=== PATIENT | female | born 1965 | race Two or more races ===

== ENCOUNTER 2020-09-11 17:25 | Emergency (ER) | payer MEDICAID ==
[~2020-09-11] VITALS: Ht 165.1 cm; Wt 61.0 kg
[2020-09-11 17:30] VITALS: BP 18/76
== END 2020-09-11 18:57 | disposition home or self-care (01) ==
LOC: ER 17:25
DX: M79.662 Pain in left lower leg (principal); M79.661 Pain in right lower leg; E11.9 Type 2 diabetes mellitus without complications; I10 Essential (primary) hypertension; K76.9 Liver disease, unspecified; Z86.73 Personal history of transient ischemic attack (TIA), and cerebral infarction without residual deficits
CPT/HCPCS: 99283

== ENCOUNTER 2020-09-11 23:52 | Emergency (ER) | payer MEDICAID ==
[~2020-09-11] VITALS: Ht 160 cm; Wt 59.0 kg
[2020-09-12] MEDS ORDERED: SODIUM CHLORIDE 0.9% 1,000 ML IV ONE (00:45)
[2020-09-12 01:16] LABS: BASOPHILS % 1.3 % (0.0-2.0); EOSINOPHILS % 2.2 % (0.0-5.0); HEMATOCRIT. 39.8 % (36.0-48.0); HEMOGLOBIN. 13.2 g/dL (12.0-16.0); LYMPHOCYTES % 45.7 % (20.0-50.0); MEAN CORPUSCULAR HEMOGLOBIN 32.4 pg (28.0-32.0); MEAN CORPUSCULAR VOLUME 97.4 fL (81.0-99.0); MONOCYTES % 10.7 % (2.0-8.0); NEUTROPHILS % 40.1 % (40.0-76.0); PLATELET 148 x1000/uL (130-400); RED BLOOD CELL COUNT 4.08 mill/uL (4.2-5.4); RED CELL DISTRIBUTION WIDTH 14.2 % (11.6-14.6)
[2020-09-12 01:19] LABS: CHLORIDE 108 mEq/L (98-107)
[2020-09-12 01:22] LABS: ETHANOL BLOOD 25 mg/dL
[2020-09-12 02:41] LABS: CLARITY URINE CLEAR (CLEAR); COLOR URINE DARK YELLOW (YELLOW); KETONES URINE TRACE (NEGATIVE); LEUKOCYTE ESTERASE URINE TRACE (NEGATIVE); NITRITE URINE NEGATIVE (NEGATIVE); OCCULT BLOOD URINE NEGATIVE (NEGATIVE); PROTEIN URINE 1+ (NEGATIVE); SPECIFIC GRAVITY URINE 1.031 (1.005-1.030)
[2020-09-12 02:52] LABS: *AMPHETAMINES SCREEN URINE PRESUMTIVE POSITIVE (NEGATIVE); *BARBITURATES SCREEN URINE NEGATIVE (NEGATIVE); *BENZODIAZEPINES SCREEN URINE NEGATIVE (NEGATIVE); *COCAINE SCREEN URINE NEGATIVE (NEGATIVE); CANNABINOID URINE SCREEN NEGATIVE (NEGATIVE); OPIATES URINE SCREEN NEGATIVE (NEGATIVE); PHENCYCLIDINE URINE SCREEN PRESUMTIVE POSITIVE (NEGATIVE)
[2020-09-12 02:56] LABS: METHADONE URINE SCREEN PRESUMTIVE POSITIVE (NEGATIVE)
[2020-09-12 05:07] VITALS: BP 109/55
== END 2020-09-12 05:21 | disposition home or self-care (01) ==
LOC: ER 23:52
DX: F10.129 Alcohol abuse with intoxication, unspecified (principal); S00.211A Abrasion of right eyelid and periocular area, initial encounter; E11.9 Type 2 diabetes mellitus without complications; I10 Essential (primary) hypertension; Y90.1 Blood alcohol level of 20-39 mg/100 ml; K76.9 Liver disease, unspecified; Z86.73 Personal history of transient ischemic attack (TIA), and cerebral infarction without residual deficits; W01.0XXA Fall on same level from slipping, tripping and stumbling without subsequent striking against object, initial encounter; Y93.89 Activity, other specified; Y92.481 Parking lot as the place of occurrence of the external cause; Y99.8 Other external cause status
CPT/HCPCS: 36415; 70450; 71045; 80053; 80305; 80320; 81003; 82140; 83605; 84443; 84484; 85025; 93005; 96360; 99285; J7030; G0480

== ENCOUNTER 2021-07-13 12:42 | Emergency (ER) | payer MEDICAID, OTHER ==
[~2021-07-13] VITALS: Ht 162.6 cm; Wt 55.0 kg
[2021-07-13 12:45] VITALS: BP 169/85
== END 2021-07-13 16:38 | disposition left against medical advice (07) ==
LOC: ER 12:42
DX: R04.0 Epistaxis (principal)
CPT/HCPCS: 99281

== ENCOUNTER 2022-07-23 08:23 | Inpatient (IN) | payer MEDICAID, OTHER ==
[~2022-07-23] VITALS: Ht 165.1 cm; Wt 72.6 kg
[2022-07-23 09:54] LABS: BASOPHILS % 0.4 % (0.0-2.0); EOSINOPHILS % 0.2 % (0.0-5.0); HEMATOCRIT. 33.6 % (36.0-48.0); HEMOGLOBIN. 11.3 g/dL (12.0-16.0); LYMPHOCYTES % 19.8 % (20.0-50.0); MEAN CORPUSCULAR HEMOGLOBIN 32.5 pg (28.0-32.0); MEAN CORPUSCULAR VOLUME 96.6 fL (81.0-99.0); MEAN PLATELET VOLUME 9.1 fl (7.4-10.4); MONOCYTES % 12.8 % (2.0-8.0); NEUTROPHILS % 66.8 % (40.0-76.0); PLATELET 189 x1000/uL (130-400); RED BLOOD CELL COUNT 3.48 mill/uL (4.2-5.4); RED CELL DISTRIBUTION WIDTH 14.4 % (11.6-14.6)
[2022-07-23 09:59] LABS: INR 1.1; PROTHROMBIN TIME 11.9 sec (9.6-11.0)
[2022-07-23 10:01] LABS: CHLORIDE 106 mEq/L (98-107)
[2022-07-23 10:08] LABS: ETHANOL BLOOD 26 mg/dL
[2022-07-23] MEDS ORDERED: VANCOMYCIN 1G PREMIX 200 ML IV ONE (10:45)
[2022-07-23] MEDS ORDERED: CEFTRIAXONE 2GM/50ML (ADDEASE) 50 ML IV ONE (10:45)
[2022-07-23] MEDS ORDERED: KETOROLAC 30MG/ML VIAL IV ONE (11:00)
[2022-07-23] MEDS ORDERED: CEFTRIAXONE 2 G in DEXTROSE 5% WATER 50 ML IV NR (11:15)
[2022-07-23 11:59] LABS: INR 1.1
[2022-07-23 12:12] LABS: CHLORIDE 107 mEq/L (98-107)
[2022-07-23 12:23] LABS: CLARITY URINE CLEAR (CLEAR); COLOR URINE YELLOW (YELLOW); KETONES URINE NEGATIVE (NEGATIVE); LEUKOCYTE ESTERASE URINE NEGATIVE (NEGATIVE); NITRITE URINE NEGATIVE (NEGATIVE); OCCULT BLOOD URINE 1+ (NEGATIVE); PH URINE 5.5 (4.5-8.0); PROTEIN URINE 1+ (NEGATIVE); SPECIFIC GRAVITY URINE 1.029 (1.005-1.030)
[2022-07-23] MEDS ORDERED: OXYCODONE HCL/ACETAMINOPHEN 5/325MG TABLET PO ONE (12:30)
[2022-07-23] MEDS ORDERED: LIDOCAINE HCL 1% 10 MG/ML 10ML VIAL ONE (14:22)
[2022-07-23] MEDS ORDERED: PIPERACILLIN/TAZ 3.375G PREMIX 50 ML IV NR (15:00)
[2022-07-23] MEDS ORDERED: CLONIDINE 0.1MG TABLET PO PRN (15:00)
[2022-07-23] MEDS ORDERED: ONDANSETRON HCL 4MG/2ML INJ IV PRN (15:00)
[2022-07-23] MEDS ORDERED: IPRATROPIUM/ALBUTEROL 0.5-3(2.5)MG/3ML NEB HHN PRN (15:00)
[2022-07-23] MEDS ORDERED: DIPHENHYDRAMINE 50MG/ML VIAL IV PRN (15:00)
[2022-07-23] MEDS ORDERED: ACETAMINOPHEN 325MG TABLET PO PRN (15:00)
[2022-07-23] MEDS ORDERED: NALOXONE HCL 0.4MG/ML VIAL IV PRN (15:15)
[2022-07-23] MEDS: SODIUM CHLORIDE 0.9% 1,000 ML IV SCH (16:00)
[2022-07-23] MEDS: MORPHINE SULFATE 4 MG/ML CPJ (NOT FOR IM USE) IV PRN ×2 (16:05→22:03)
[2022-07-23 17:31] LABS: GLUCOSE CSF 73 mg/dL (41-75)
[2022-07-23 17:32] LABS: *AMPHETAMINES SCREEN URINE PRESUMTIVE POSITIVE (NEGATIVE); *BARBITURATES SCREEN URINE NEGATIVE (NEGATIVE); *BENZODIAZEPINES SCREEN URINE PRESUMTIVE POSITIVE (NEGATIVE); *COCAINE SCREEN URINE NEGATIVE (NEGATIVE); CANNABINOID URINE SCREEN NEGATIVE (NEGATIVE); OPIATES URINE SCREEN NEGATIVE (NEGATIVE); PHENCYCLIDINE URINE SCREEN NEGATIVE (NEGATIVE)
[2022-07-23 17:36] LABS: METHADONE URINE SCREEN PRESUMTIVE POSITIVE (NEGATIVE)
[2022-07-23] MEDS ORDERED: IPRATROPIUM BROMIDE (0.02%) 0.5MG/2.5ML NEB HHN PRN (19:00)
[2022-07-23] MEDS ORDERED: ALBUTEROL (0.083%) 2.5MG/3ML NEB HHN PRN (19:00)
[2022-07-23 20:00] VITALS: BP 123/54
[2022-07-23] MEDS ORDERED: VANCOMYCIN 750MG PREMIX 150 ML IV SCH ×2 (21:00)
[2022-07-23] MEDS: CEFTRIAXONE 2 G in DEXTROSE 5% WATER 50 ML IV SCH (22:04)
[2022-07-23] MEDS ORDERED: CEFTRIAXONE 2GM/50ML (ADDEASE) 50 ML IV SCH (23:00)
[2022-07-23] MEDS ORDERED: PIPERACILLIN/TAZOBACTAM 3.375 G in DEXTROSE 5% WATER 50 ML IV SCH (23:00)
[2022-07-23] MEDS ORDERED: CEFTRIAXONE 2 G in DEXTROSE 5% WATER 50 ML IV SCH (23:00)
[2022-07-24] VITALS: BP 135/64
[2022-07-24 04:00] VITALS: BP 127/64
[2022-07-24] MEDS: MORPHINE SULFATE 4 MG/ML CPJ (NOT FOR IM USE) IV PRN ×2 (06:56→18:28)
[2022-07-24 07:01] LABS: BASOPHILS % 0.4 % (0.0-2.0); EOSINOPHILS % 1.4 % (0.0-5.0); HEMATOCRIT. 29.4 % (36.0-48.0); HEMOGLOBIN. 9.9 g/dL (12.0-16.0); LYMPHOCYTES % 28.1 % (20.0-50.0); MEAN CORPUSCULAR HEMOGLOBIN 32.4 pg (28.0-32.0); MEAN CORPUSCULAR VOLUME 96.3 fL (81.0-99.0); MEAN PLATELET VOLUME 9.5 fl (7.4-10.4); MONOCYTES % 14.7 % (2.0-8.0); NEUTROPHILS % 55.4 % (40.0-76.0); PLATELET 153 x1000/uL (130-400); RED BLOOD CELL COUNT 3.06 mill/uL (4.2-5.4); RED CELL DISTRIBUTION WIDTH 14.2 % (11.6-14.6)
[2022-07-24 08:00] VITALS: BP 129/60
[2022-07-24 08:27] LABS: CHLORIDE 107 mEq/L (98-107)
[2022-07-24] MEDS ORDERED: VANCOMYCIN 1G PREMIX 200 ML IV SCH (09:30)
[2022-07-24] MEDS: CEFTRIAXONE 2 G in DEXTROSE 5% WATER 50 ML IV SCH ×2 (09:38→19:51)
[2022-07-24] MEDS ORDERED: METH10OR11 PO (10:40)
[2022-07-24] MEDS: METHADONE HCL 10MG TABLET PO SCH (11:34)
[2022-07-24] MEDS: VANCOMYCIN 1G PREMIX 200 ML IV SCH ×2 (11:56→22:05)
[2022-07-24 12:00] VITALS: BP 133/44
[2022-07-24 16:00] VITALS: BP 118/55
[2022-07-24] MEDS: SODIUM CHLORIDE 0.9% 1,000 ML IV SCH (17:49)
[2022-07-24 21:00] VITALS: BP 176/74
[2022-07-25] VITALS: BP 151/65
[2022-07-25 04:00] VITALS: BP 132/66
[2022-07-25] MEDS: SODIUM CHLORIDE 0.9% 1,000 ML IV SCH ×2 (07:00→17:13)
[2022-07-25 07:51] LABS: BASOPHILS % 0.6 % (0.0-2.0); EOSINOPHILS % 0.9 % (0.0-5.0); LYMPHOCYTES % 35.4 % (20.0-50.0); MEAN CORPUSCULAR HEMOGLOBIN 32.4 pg (28.0-32.0); MEAN CORPUSCULAR VOLUME 95.5 fL (81.0-99.0); MEAN PLATELET VOLUME 9.5 fl (7.4-10.4); MONOCYTES % 9.8 % (2.0-8.0); NEUTROPHILS % 53.3 % (40.0-76.0); PLATELET 193 x1000/uL (130-400); RED BLOOD CELL COUNT 3.56 mill/uL (4.2-5.4); RED CELL DISTRIBUTION WIDTH 14.1 % (11.6-14.6)
[2022-07-25 08:00] VITALS: BP 142/64
[2022-07-25 08:27] LABS: HEMOGLOBIN. 11.5 g/dL (12.0-16.0)
[2022-07-25] MEDS: METHADONE HCL 10MG TABLET PO SCH (08:28)
[2022-07-25] MEDS: CEFTRIAXONE 2 G in DEXTROSE 5% WATER 50 ML IV SCH ×2 (08:29→21:32)
[2022-07-25 08:44] LABS: CHLORIDE 105 mEq/L (98-107)
[2022-07-25] MEDS: VANCOMYCIN 1G PREMIX 200 ML IV SCH ×2 (09:28→22:07)
[2022-07-25 12:00] VITALS: BP 150/64
[2022-07-25] MEDS ORDERED: PANT20TA17 PO (14:58)
[2022-07-25] MEDS ORDERED: FLUO10TA35 PO (14:59)
[2022-07-25] MEDS ORDERED: DIVA250T4 PO (15:01)
[2022-07-25] MEDS ORDERED: BENA-8 PO (15:01)
[2022-07-25] MEDS ORDERED: THIA100T72 PO (15:01)
[2022-07-25] MEDS ORDERED: IBUP-2741 PO (15:02)
[2022-07-25] MEDS ORDERED: GABA800T97 PO (15:12)
[2022-07-25 16:00] VITALS: BP 154/71
[2022-07-25 16:33] LABS: BASOPHILS % 0.6 % (0.0-2.0); EOSINOPHILS % 0.8 % (0.0-5.0); HEMATOCRIT. 34.4 % (36.0-48.0); HEMOGLOBIN. 11.4 g/dL (12.0-16.0); LYMPHOCYTES % 34.8 % (20.0-50.0); MEAN CORPUSCULAR VOLUME 96.6 fL (81.0-99.0); MEAN PLATELET VOLUME 9.8 fl (7.4-10.4); MONOCYTES % 11.6 % (2.0-8.0); NEUTROPHILS % 52.2 % (40.0-76.0); PLATELET 180 x1000/uL (130-400); RED BLOOD CELL COUNT 3.56 mill/uL (4.2-5.4); RED CELL DISTRIBUTION WIDTH 13.9 % (11.6-14.6)
[2022-07-25 16:50] LABS: CHLORIDE 106 mEq/L (98-107)
[2022-07-25] MEDS: DIVALPROEX SODIUM 250MG DR TABLET PO SCH (17:00)
[2022-07-25] MEDS: GABAPENTIN 400MG CAPSULE PO SCH (17:13)
[2022-07-25 20:00] VITALS: BP 100/60
[2022-07-25] MEDS: BENAZEPRIL 10MG TABLET PO SCH (21:00)
[2022-07-26] MEDS: MORPHINE SULFATE 4 MG/ML CPJ (NOT FOR IM USE) IV PRN ×3 (00:35→23:43)
[2022-07-26 04:00] VITALS: BP 135/59
[2022-07-26 08:00] VITALS: BP 135/58
[2022-07-26] MEDS: METHADONE HCL 10MG TABLET PO SCH (08:22)
[2022-07-26] MEDS: GABAPENTIN 400MG CAPSULE PO SCH ×2 (08:22→17:30)
[2022-07-26] MEDS: BENAZEPRIL 10MG TABLET PO SCH ×2 (08:23→21:45)
[2022-07-26] MEDS: PANTOPRAZOLE 40MG DR TABLET PO SCH (08:23)
[2022-07-26] MEDS: VANCOMYCIN 1G PREMIX 200 ML IV SCH ×2 (08:23→20:43)
[2022-07-26] MEDS: DIVALPROEX SODIUM 250MG DR TABLET PO SCH ×2 (08:23→17:30)
[2022-07-26] MEDS: CEFTRIAXONE 2 G in DEXTROSE 5% WATER 50 ML IV SCH ×2 (08:23→20:42)
[2022-07-26] MEDS: FLUOXETINE HCL 10 MG CAPSULE PO SCH (08:27)
[2022-07-26] MEDS: SODIUM CHLORIDE 0.9% 1,000 ML IV SCH ×2 (09:40→23:56)
[2022-07-26] MEDS: THIAMINE HCL 100MG TABLET PO SCH (10:21)
[2022-07-26 10:46] VITALS: BP 135/58
[2022-07-26 12:00] VITALS: BP 152/65
[2022-07-26 16:00] VITALS: BP 140/56
[2022-07-26 20:00] VITALS: BP 140/65
[2022-07-27 06:15] LABS: BASOPHILS % 0.8 % (0.0-2.0); EOSINOPHILS % 1.8 % (0.0-5.0); HEMATOCRIT. 33.7 % (36.0-48.0); HEMOGLOBIN. 11.4 g/dL (12.0-16.0); MEAN CORPUSCULAR HEMOGLOBIN 32.3 pg (28.0-32.0); MEAN CORPUSCULAR VOLUME 95.6 fL (81.0-99.0); MEAN PLATELET VOLUME 9.6 fl (7.4-10.4); MONOCYTES % 11.9 % (2.0-8.0); NEUTROPHILS % 46.5 % (40.0-76.0); PLATELET 211 x1000/uL (130-400); RED BLOOD CELL COUNT 3.52 mill/uL (4.2-5.4); RED CELL DISTRIBUTION WIDTH 13.8 % (11.6-14.6)
[2022-07-27 08:00] VITALS: BP 138/57
[2022-07-27 08:32] LABS: CHLORIDE 107 mEq/L (98-107)
[2022-07-27] MEDS: METHADONE HCL 10MG TABLET PO SCH (08:32)
[2022-07-27] MEDS: CEFTRIAXONE 2 G in DEXTROSE 5% WATER 50 ML IV SCH ×2 (08:32→20:12)
[2022-07-27] MEDS: VANCOMYCIN 1G PREMIX 200 ML IV SCH ×2 (08:32→21:22)
[2022-07-27] MEDS: GABAPENTIN 400MG CAPSULE PO SCH ×2 (08:33→17:16)
[2022-07-27] MEDS: DIVALPROEX SODIUM 250MG DR TABLET PO SCH ×2 (08:33→17:16)
[2022-07-27] MEDS: FLUOXETINE HCL 10 MG CAPSULE PO SCH (08:33)
[2022-07-27] MEDS: PANTOPRAZOLE 40MG DR TABLET PO SCH (08:34)
[2022-07-27] MEDS: THIAMINE HCL 100MG TABLET PO SCH (08:34)
[2022-07-27] MEDS: BENAZEPRIL 10MG TABLET PO SCH ×2 (08:34→20:12)
[2022-07-27 12:00] VITALS: BP 143/68
[2022-07-27 16:00] VITALS: BP 127/61
[2022-07-27 17:03] LABS: HEPATITIS B SURFACE ANTIGEN NEGATIVE
[2022-07-27] MEDS: CHLORDIAZEPOXIDE 5 MG CAPSULE PO SCH ×2 (17:16→21:30)
[2022-07-27 20:00] VITALS: BP_SYST 150; BP_SYST 160; BP_DIAS 73; BP_DIAS 77
[2022-07-27] MEDS: SODIUM CHLORIDE 0.9% 1,000 ML IV SCH (20:13)
[2022-07-27] MEDS: MORPHINE SULFATE 4 MG/ML CPJ (NOT FOR IM USE) IV PRN (20:15)
[2022-07-27 23:48] VITALS: BP 155/60
[2022-07-28 04:00] VITALS: BP 102/68
[2022-07-28] MEDS: CHLORDIAZEPOXIDE 5 MG CAPSULE PO SCH ×2 (06:09→13:40)
[2022-07-28] MEDS: MORPHINE SULFATE 4 MG/ML CPJ (NOT FOR IM USE) IV PRN (06:24)
[2022-07-28 06:39] LABS: BASOPHILS % 0.8 % (0.0-2.0); EOSINOPHILS % 1.3 % (0.0-5.0); HEMATOCRIT. 30.3 % (36.0-48.0); HEMOGLOBIN. 10.3 g/dL (12.0-16.0); LYMPHOCYTES % 34.9 % (20.0-50.0); MEAN CORPUSCULAR HEMOGLOBIN 32.3 pg (28.0-32.0); MEAN CORPUSCULAR VOLUME 94.8 fL (81.0-99.0); MEAN PLATELET VOLUME 9.4 fl (7.4-10.4); MONOCYTES % 10.5 % (2.0-8.0); NEUTROPHILS % 52.5 % (40.0-76.0); PLATELET 178 x1000/uL (130-400); RED CELL DISTRIBUTION WIDTH 13.7 % (11.6-14.6)
[2022-07-28 08:00] VITALS: BP 139/64
[2022-07-28] MEDS ORDERED: LORAZEPAM 0.5MG TABLET PO PRN (08:15)
[2022-07-28] MEDS: THIAMINE HCL 100MG TABLET PO SCH (08:35)
[2022-07-28] MEDS: GABAPENTIN 400MG CAPSULE PO SCH (08:35)
[2022-07-28] MEDS: BENAZEPRIL 10MG TABLET PO SCH (08:35)
[2022-07-28] MEDS: METHADONE HCL 10MG TABLET PO SCH (08:41)
[2022-07-28] MEDS: FLUOXETINE HCL 10 MG CAPSULE PO SCH (08:41)
[2022-07-28] MEDS: DIVALPROEX SODIUM 250MG DR TABLET PO SCH (08:42)
[2022-07-28 08:57] LABS: CHLORIDE 109 mEq/L (98-107)
[2022-07-28] MEDS ORDERED: FAMOTIDINE 20MG TABLET PO SCH (09:00)
[2022-07-28] MEDS: VANCOMYCIN 1G PREMIX 200 ML IV SCH (09:04)
[2022-07-28] MEDS ORDERED: CHLO5CAP3 MT (09:53)
[2022-07-28] MEDS ORDERED: DOXY100C5 MT (09:57)
[2022-07-28] MEDS ORDERED: CEPH500T MT (09:57)
[2022-07-28 12:00] VITALS: BP 134/67
[2022-07-28 13:20] VITALS: BP 134/67
[2022-07-30 13:07] LABS: ATYPICAL P-ANCA <1:20 titer (Neg:<1:20); CYTOPLASMIC C-ANCA <1:20 titer (Neg:<1:20); PERINUCLEAR P-ANCA <1:20 titer (Neg:<1:20)
[2022-07-30 15:10] LABS: ANA IFA Negative (.)
[2022-07-30 19:10] LABS: ANTI-MYELOPEROXIDASE AB < 0.2 units (0.0-0.9); ANTI-PROTEINASE 3 ABS < 0.2 units (0.0-0.9)
== END 2022-07-28 12:35 | disposition home or self-care (01) | DRG 383 ==
LOC: ER 08:23 → MICUSO 12:51 → EDBEDREQTM 12:56 → EDBEDREQ 12:56 → 7EST 18:39
PROVIDERS: ADMIT Internal Medicine; ATTEND Internal Medicine
DX: L03.115 Cellulitis of right lower limb (principal); D64.9 Anemia, unspecified; E11.9 Type 2 diabetes mellitus without complications; F10.229 Alcohol dependence with intoxication, unspecified; F15.90 Other stimulant use, unspecified, uncomplicated; L03.116 Cellulitis of left lower limb; I77.6 Arteritis, unspecified; I10 Essential (primary) hypertension; Z20.822 Contact with and (suspected) exposure to COVID-19; K76.9 Liver disease, unspecified; F31.30 Bipolar disorder, current episode depressed, mild or moderate severity, unspecified; G60.9 Hereditary and idiopathic neuropathy, unspecified; Z86.73 Personal history of transient ischemic attack (TIA), and cerebral infarction without residual deficits
CPT/HCPCS: 36415; 62328; 71045; 73630; 80048; 80053; 80076; 80202; 80305; 80320; 81003; 82140; 82945; 82962; 83520; 83605; 84145; 84157; 85025; 85651; 86160; 86256; 86705; 86709; 86803; 87070; 87340; 87426; 93970; 99285; C1893; C9803; J0696; J1885; J2270; J3370; J3490; J7060; G0480

== ENCOUNTER 2023-01-05 16:30 | Emergency (ER) | payer MEDICAID, OTHER ==
[~2023-01-05] VITALS: Ht 165.1 cm; Wt 73.0 kg
[~2023-01-05 16:30] MED LIST: BENA-8 PO; CEPH500T MT; CHLO5CAP3 MT; DIVA250T4 PO; DOXY100C5 MT; FLUO10TA35 PO; GABA800T97 PO; IBUP-2741 PO; METH10OR11 PO; PANT20TA17 PO; THIA100T72 PO
[2023-01-05 16:41] VITALS: BP 145/64; PULSE 85; RESP 16; O2SAT 100
== END 2023-01-05 16:54 ==
LOC: ER 16:30
DX: Z53.21 Procedure and treatment not carried out due to patient leaving prior to being seen by health care provider (principal)
CPT/HCPCS: 99281